=== PATIENT | female | born 1995 | race Caucasian/White ===

== ENCOUNTER 2016-08-31 09:32 | Emergency (ER) | payer OTHER ==
[2016-08-31 10:00] VITALS: BP 127/58; PULSE 83; RESP 16; TEMP 98.6; O2SAT 96
--- NOTE | 2016-08-31 10:39 | UCPHY ---
H & P Time Seen by Provider: 08/31/16 10:29 Patient Type: New HPI/ROS: This patient presents with chief complaint pain, redness and swelling in the great toe of the left foot which she 1st noticed 2 or 3 days ago. It has been gradually worsening and she believes that she has an ingrown toenail. She has had these several times in the past but they have resolved spontaneously. She denies fever or any constitutional symptoms. She denies any trauma. Smoking Status: Never smoked Physical Exam: This patient is alert, lucid and has a normal mental status. Examination of the left great toe reveals swelling over the medial nail fold consistent with an early paronychia. There is no fluctuance and I do not believe that this requires incision and drainage. Constitutional: Initial Vital Signs Temperature (C) 37.0 C 08/31/16 09:54 Heart Rate 83 08/31/16 09:54 Respiratory Rate 16 08/31/16 09:54 Blood Pressure 127/58 H 08/31/16 09:54 O2 Sat (%) 96 08/31/16 09:54 O2 Delivery Mode Room Air Allergies/Adverse Reactions: magnesium citrate Allergy (Verified 08/31/16 09:56) Home Medications: Medication Instructions Recorded Abilify 08/31/16 Cephalexin [Keflex] 500 mg PO QID #28 cap 08/31/16 Triliptril 08/31/16 Wellbutrin Sr 08/31/16 Medical Decision Making Differential Diagnosis: This patient has an early paronychia and I believe that antibiotics and warm soaks will resolve the problem. Departure - Departure Disposition: Home, Routine, Self-Care Clinical Impression: Cellulitis of toe of left foot Condition: Good Instructions: Cellulitis (ED) Additional Instructions: If there is not definite improvement in both swelling and pain within 3 days you should be re-evaluated. Keep your foot elevated as much as possible. Soak your toe in hot water 3 or 4 times daily. Adult Pain & Fever Control: We recommend Acetaminophen (Tylenol) and Ibuprofen (Motrin, Advil) for pain and fever control. When fever is high or pain severe, both drugs can be used at the same time, but at different intervals. Please note the time differences. Your dose is: Acetaminophen [650]mg every 4 to 6 hours ibuprofen [600]mg every [6] hours with food OR naproxen Sodium (Aleve) [440]mg every 12 hours. Note: do not take Acetaminophen with Hydrocodone (Vicodin, Lortab) or Oxycodone (Percocet). These medications also contain Acetaminophen. No more than 3000 mg of Acetaminophen should be taken in 24 hours (for an adult) . The maximal dose of ibuprofen that it is safe in a 24-hour period is 2400 mg. You may take 400 mg every 4 hours, 600 mg every 6 hours or 800 mg every 8 hours safely. Prescriptions: Cephalexin [Keflex] 500 mg PO QID #28 cap - PQRS PQRS Measurement: Not applicable
== END 2016-08-31 10:50 | disposition home or self-care (01) ==
LOC: CED 09:32
DX: L03.032 Cellulitis of left toe (principal)
CPT/HCPCS: 99202-PO; G0463-PO